=== PATIENT | male | born 1985 | race African-American/Black ===

== ENCOUNTER 2023-11-22 21:05 | Emergency (ER) | payer OTHER, SELFPAY ==
[2023-11-22] VITALS (10 sets, daily range): BP systolic 122–134; BP diastolic 71–88; PULSE 63–83; RESP 12–18; TEMP 36.3–36.4; O2SAT 95–99
--- NOTE | ~2023-11-22 | CT_ITS ---
EXAMINATION: CT brain wo con DATE: 11/22/2023 22:37 INDICATION: Seizure. Headache. TECHNIQUE: Computed tomography (CT) of the head was performed without intravenous contrast. The mA wa s adjusted according to patient size. Iterative reconstruction technique was employed. Exam dose: 75 6.67 mGy-cm total exam DLP. COMPARISON: 05/17/2014 CT brain is not available currently from system. FINDINGS: No intracranial mass lesion or hemorrhage or cerebrovascular accident. No midline shift or mass effect. Normal ventricular size. Normal villareal-white matter differentiation. No subdural or epidural hematoma. The orbits are unremarkable. 0.5 mm mucous retention cyst or polyp of the posterior right maxillary sinus. The included paranasal sinuses and the mastoid air cells otherwise are unremarkable. No fracture or bone destruction of the cranial vault. IMPRESSION: No significant intracranial abnormality Reviewed, dictated and finalized at [facility]. Reviewed, dictated and finalized at [facility].
[2023-11-22 21:30] LABS: Basophils Percent Auto 0.3 % (0.2-1.2); Eosinophils Absolute Auto 0.1 K/mm3 (0-0.3); Eosinophils Percent Auto 1.2 % (0-4.4); Hematocrit 40.5 % (42.0-52.0); Hemoglobin 13.5 g/dL (14.0-18.0); Immature Granulocyte Absolute 0.01 K/mm3 (0.00-0.031); Immature Granulocyte Percent A 0.2 % (0-0.5); Lymphocytes Absolute Auto 2.97 K/mm3 (0.9-3.2); Mean Corpuscular HGB Conc 33.3 g/dl (32-36); Mean Corpuscular Hemoglobin 32.3 pg (26-34); Mean Corpuscular Volume 96.9 fl (80-100); Monocytes Absolute Auto 0.7 K/mm3 (0.1-0.6); Monocytes Percent Auto 11.1 % (2.6-8.5); Neutrophils Absolute Auto 2.7 K/mm3 (1.3-6.7); Neutrophils Percent Auto 41.2 % (45.5-73.1); Platelet Count Result 247 k/mm3 (150-375); Red Blood Count 4.18 M/mm3 (4.6-6.20); White Blood Count 6.5 K/mm3 (4.5-10.0)
[2023-11-22 21:46] LABS: Alanine Aminotransferase 16 U/L (6-50); Albumin Level 4.3 g/dL (3.5-5.1); Alkaline Phosphatase 72 U/L (38-126); Anion Gap 8 mmol/L (4-12); Aspartate Amino Transferase 25 U/L (17-59); Bilirubin,Total 0.4 mg/dL (0.2-1.3); Blood Urea Nitrogen 9 mg/dL (9-20); Calcium 9.8 mg/dL (8.4-10.2); Carbon Dioxide 26 mmol/L (22-30); Chloride 106 mmol/L (98-107); Estimated CRCL calculation 147 ml/min; Estimated Glomerular Filt Rate > 60; Glucose 103 mg/dL (65-110); Potassium 4.6 mmol/L (3.4-5.0); Sodium 140 mmol/L (137-145)
[2023-11-22] MEDS: ACETAMINOPHEN 500 MG TABLET 1000 MG PO (21:50)
[2023-11-22 22:00] LABS: Phenytoin Dilantin 7 ug/mL (10-20)
[2023-11-22] MEDS: PHENYTOIN SODIUM 100 MG EXTENDED RELEASE CAP 200 MG PO (22:16)
--- NOTE | 2023-11-22 22:21 | PC.NURSE ---
Patient taken to imaging at this time.
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
[2023-11-22] MEDS: FAMOTIDINE 20 MG/2 ML VIAL IV PUSH (23:26)
[2023-11-22] MEDS: BELLADONNA ALK/PHENOB ELIX 10 ML, MAG HYDROX/ALUMINUM HYD/SIMETH 30 ML, LIDOCAINE HCL 2... PO (23:26)
[2023-11-26 21:32] LABS: Carbamazepine Tegretol 3.2 mcg/mL (4.0-12.0)
== END 2023-11-22 23:40 ==
PROVIDERS: Emergency Medicine; Emergency Provider Physician Assistant
DX: G40.909 Epilepsy, unspecified, not intractable, without status epilepticus (principal)
CPT/HCPCS: 36415; 70450; 80053; 80156; 80185; 85025; 96374; 99284; A9270